=== PATIENT | female | born 1945 | race Caucasian/White ===

== ENCOUNTER 2016-10-19 10:21 | Emergency (ER) | payer BC ==
[2016-10-19 11:04] VITALS: BP 106/67
[2016-10-19] MEDS ORDERED: predniSONE TAB* 20 MG PO ONE (12:15)
--- NOTE | 2016-10-19 12:24 | UC ---
Skin Complaint HPI - HPI Summary HPI Summary: 71 yo female with poison lora x 4 days progressively worsening - History of Current Complaint Chief Complaint: UCSkin Time Seen by Provider: 10/19/16 12:07 Stated Complaint: POISON LORA Hx Obtained From: Patient Onset/Duration: Gradual Onset, Lasting Days Timing: Constant Onset Severity: Mild Current Severity: Mild Pain Intensity: 0 Pain Scale Used: 0-10 Numeric Character: Pruritus, Redness, Painful Aggravating: Nothing Alleviating: Nothing Associated Signs & Symptoms: Positive: Negative, Rash - Allergy/Home Medications Allergies/Adverse Reactions: Allergies Allergy/AdvReac Type Severity Reaction Status Date / Time Niacin Allergy Agitation Verified 10/19/16 11:04 Home Medications: Home Medications Aspirin Low Dose CHEW TAB* [Aspirin Low Dose TAB*] 81 mg PO DAILY 10/19/16 [ History Confirmed 10/19/16] Levothyroxine TAB* [Synthroid TAB*] 150 mcg PO DAILY 10/19/16 [History Confirmed 10/19/16] Lisinopril TAB* [Prinivil TAB*] 5 mg PO DAILY 10/19/16 [History Confirmed ] Multiple Vitamins W/ Minerals [Ocuvite Eye Health Formul] 1 cap PO DAILY [History Confirmed 10/19/16] Pravastatin Sodium [Pravachol] 40 mg PO DAILY 10/19/16 [History Confirmed ] Review of Systems Constitutional: Negative Skin: Rash Eyes: Negative ENT: Negative Respiratory: Negative Cardiovascular: Negative Gastrointestinal: Negative Genitourinary: Negative Motor: Negative Neurovascular: Negative Musculoskeletal: Negative Neurological: Negative Psychological: Negative All Other Systems Reviewed And Are Negative: Yes PMH/Surg Hx/FS Hx/Imm Hx Previously Healthy: Yes - Surgical History Surgical History: Yes Surgery Procedure, Year, and Place: thyroid. left total knee - Family History Known Family History: Positive: Hypertension - Social History Alcohol Use: Occasionally Substance Use Type: None Smoking Status (MU): Never Smoked Tobacco Physical Exam Triage Information Reviewed: Yes Appearance: Well-Appearing, No Pain Distress, Well-Nourished Vital Signs: Initial Vital Signs Temp 98.5 F 10/19/16 11:02 Pulse 65 10/19/16 11:02 Resp 16 10/19/16 11:02 BP 106/67 10/19/16 11:02 Pulse Ox 99 10/19/16 11:02 Vital Signs Reviewed: Yes Eyes: Positive: Conjunctiva Clear ENT: Positive: Hearing grossly normal. Negative: Pharyngeal erythema, Nasal congestion, Nasal drainage, TMs normal, Trismus, Muffled/hoarse voice Neck: Positive: Supple, Nontender Respiratory: Positive: Lungs clear, Normal breath sounds, No respiratory distress Cardiovascular: Positive: RRR, No Murmur Musculoskeletal: Positive: ROM Intact, No Edema Neurological: Positive: Alert Skin Exam: Other - rash c/w contact derm on arms and legs Course/Dx - Diagnoses Provider Diagnoses: contact dermatitis Discharge - Discharge Plan Condition: Stable Disposition: HOME Prescriptions: Prednisone [Deltasone] 20 - 40 mg PO DAILY #15 tab Patient Education Materials: Poison Lora (ED) Additional Instructions: recheck for worsening symptoms see your MD if not better in 1-2 weeks
== END 2016-10-19 12:27 | disposition home or self-care (01) ==
LOC: UCCORT 10:21
DX: L25.5 Unspecified contact dermatitis due to plants, except food (principal); Z88.8 Allergy status to other drugs, medicaments and biological substances; E89.0 Postprocedural hypothyroidism; Z96.652 Presence of left artificial knee joint
CPT/HCPCS: 99202; G0463; J7512

== ENCOUNTER 2017-09-29 09:22 | Emergency (ER) | payer BC ==
[2017-09-29 09:37] VITALS: BP 101/52
--- NOTE | 2017-09-29 09:50 | UC ---
Skin Complaint HPI - HPI Summary HPI Summary: Skin rash for a few days. This is after mowing the lawn. She gets this every year. No fever or chills. Prednisone some times helps. - History of Current Complaint Chief Complaint: UCSkin Time Seen by Provider: 09/29/17 09:30 Stated Complaint: skin complaint Hx Obtained From: Patient Onset/Duration: Gradual Onset, Lasting Days Skin Exposure Onset/Duration: Days Ago Onset Severity: Moderate Current Severity: Moderate Pain Intensity: 0 Location: Diffuse - small patches diffusely., Generalized - Mainly on the arms but there is a patch ont he chest as well. Character: Swelling, Pruritus, Raised Aggravating Factor(s): Touch Alleviating Factor(s): Nothing Associated Signs & Symptoms: Positive: Rash. Negative: Nausea, Vomiting, Numbness, Pallor, Shivering, Fever, Chills, Cough, Tenderness - Allergy/Home Medications Allergies/Adverse Reactions: Allergies Allergy/AdvReac Type Severity Reaction Status Date / Time niacin AdvReac Anxiety Verified 09/29/17 09:37 Review of Systems Skin: Rash All Other Systems Reviewed And Are Negative: Yes PMH/Surg Hx/FS Hx/Imm Hx Previously Healthy: No - prior contact dermatitis. - Surgical History Surgical History: Yes Surgery Procedure, Year, and Place: Thyroidectomy, 1966. Left Knee Arthroscopy. Tonsillectomy - Family History Known Family History: Positive: Hypertension - Social History Alcohol Use: None Substance Use Type: None Smoking Status (MU): Never Smoked Tobacco Physical Exam Triage Information Reviewed: Yes Appearance: Well-Appearing, No Pain Distress, Well-Nourished Vital Signs: Initial Vital Signs Temp 99.0 F 09/29/17 09:31 Pulse 65 09/29/17 09:31 Resp 16 09/29/17 09:31 BP 101/52 09/29/17 09:31 Pulse Ox 99 09/29/17 09:31 Vital Signs Reviewed: Yes Eyes: Positive: Conjunctiva Clear ENT: Positive: Normal ENT inspection Neck: Positive: Supple, Nontender, No Lymphadenopathy. Negative: Nuchal Rigidity Respiratory: Negative: Respiratory distress Cardiovascular: Positive: Brisk Capillary Refill Abdomen Description: Negative: Distended Musculoskeletal: Positive: Strength Intact, ROM Intact, No Edema Neurological: Positive: Alert, Muscle Tone Normal. Negative: Fatigued Skin: Positive: rashes - small patches of rash mainly scatterred about the arms. There are small vesicles that are raised. Course/Dx - Diagnoses Provider Diagnoses: contact dermatitis. Discharge - Sign-Out/Discharge Documenting (check all that apply): Discharge/Admit/Transfer - Discharge Plan Condition: Good Disposition: HOME Prescriptions: Triamcinolone 0.5% OINT * 1 applic TOPICAL BID #1 tube Patient Education Materials: Poison Rika (ED), Cold Compress or Soak (ED) Referrals: Johny ZAFAR,Natali Shepard [Primary Care Provider] - - Billing Disposition and Condition Condition: GOOD Disposition: HOME
== END 2017-09-29 09:50 | disposition home or self-care (01) ==
LOC: UCCORT 09:22
DX: L25.9 Unspecified contact dermatitis, unspecified cause (principal); Z88.8 Allergy status to other drugs, medicaments and biological substances
CPT/HCPCS: 99212; G0463

== ENCOUNTER 2023-04-08 08:42 | Inpatient (IN) ==
[~2023-04-08 08:42] MED LIST: Buffered Lidocaine 1% SYRIN 1 ml INTRADERM ONE; Famotidine IV 10 MG/ML 2 ml VIAL (20 mg) IV ONE; Lactated Ringers 1000 ml BAG 1,000 ML IV SCH
[2023-04-08] MEDS ORDERED: Tranexamic Acid 1 GM/100ML BAG 2,000 MG/200 ML BAG IV ONE (09:14)
[2023-04-08] MEDS ORDERED: ceFAZolin 2 GM PREMIX 2 GM/50 ML BAG ONE (09:14)
[2023-04-08] MEDS ORDERED: Famotidine IV 10 MG/ML 2 ml VIAL (20 mg) ONE (09:14)
[2023-04-08 09:43] LABS: Rapid COVID-19 Molecular Undetected (Undetected)
[2023-04-08] MEDS ORDERED: Propofol 10 MG/ML 20 ML BTL ONE (10:17)
[2023-04-08] MEDS ORDERED: Ondansetron 4 mg VIAL 2 MG/ML 2 ml VIAL ONE (10:17)
[2023-04-08] MEDS ORDERED: Glycopyrrolate IV 0.2 MG/ML 1 ML VIAL ONE (10:17)
[2023-04-08] MEDS ORDERED: Dexamethasone IV 4 MG/ML VIAL 1 ml VIAL ONE (10:17)
[2023-04-08] MEDS ORDERED: fentaNYL 100 mcg/2 ml 50 MCG/ML VIAL ONE ×3 (10:17→14:36)
[2023-04-08] MEDS ORDERED: Rocuronium 50 mg VIAL 10 mg/ml 5 ml VIAL (50 mg) ONE (10:19)
[2023-04-08] MEDS ORDERED: ROPIVACAINE 5 MG/ML 30 ML BTL (0.5%) ONE (10:24)
[2023-04-08] MEDS ORDERED: Esmolol 10 MG/ML 10 ML (100 mg) IV ONE (11:11)
[2023-04-08] MEDS ORDERED: Ondansetron 4 mg VIAL 2 MG/ML 2 ml VIAL IV PRN ×2 (11:32→13:59)
[2023-04-08] MEDS ORDERED: Naloxone 0.4 mg VIAL 0.4 mg/ml 1 ml VIAL IV PRN (11:32)
[2023-04-08] MEDS ORDERED: HYDROmorphone 0.5 MG/0.5 ML SYRINGE ONE (11:39)
[2023-04-08] MEDS ORDERED: Labetalol IV 5 MG/ML 20 ml VIAL ONE (12:32)
[2023-04-08] MEDS ORDERED: Magnesium Hydroxide LIQ 30 ML UDC PO PRN (13:59)
[2023-04-08] MEDS ORDERED: Lactulose 30 ml UDC PO PRN (13:59)
[2023-04-08] MEDS ORDERED: Ondansetron ODT 4 mg TAB 4 MG TAB PO PRN (13:59)
[2023-04-08] MEDS ORDERED: Morphine 2 MG/ML SYRINGE IV PRN (13:59)
[2023-04-08] MEDS: fentaNYL 100 mcg/2 ml 50 MCG/ML VIAL IV PRN ×4 (14:39→15:15)
[2023-04-08] MEDS ORDERED: HYDROmorphone 1 MG/1 ML SYRINGE ONE (15:41)
[2023-04-08] MEDS: HYDROmorphone 1 MG/1 ML SYRINGE IV PRN ×3 (15:43→16:02)
[2023-04-08] MEDS: Lactated Ringers 1000 ml BAG 1,000 ML IV SCH (18:45)
[2023-04-08] MEDS: ceFAZolin 1 GM ADVAN 1 GM in NS 0.9% 50 ML 50 ML IVPB SCH (18:46)
[2023-04-08] MEDS: Magnesium Hydroxide LIQ 30 ML UDC PO SCH (21:04)
[2023-04-09] MEDS: ceFAZolin 1 GM ADVAN 1 GM in NS 0.9% 50 ML 50 ML IVPB SCH ×2 (03:42→10:30)
[2023-04-09] MEDS: Lactated Ringers 1000 ml BAG 1,000 ML IV SCH (05:21)
[2023-04-09] MEDS: Magnesium Hydroxide LIQ 30 ML UDC PO SCH (07:42)
[2023-04-09 07:50] LABS: Hematocrit 28.2 % (35-45); Hemoglobin 9.4 g/dL (11.5-14.3); Mean Platelet Volume 7.9 fL (7.5-11.2); Platelet Count 205 10^3/uL (150-450)
[2023-04-09 08:40] LABS: Creatinine, Serum 0.78 mg/dL (0.51-0.95); Potassium 4.4 mmol/L (3.5-5.0); eGFR CKD-EPI 77.2 (>60)
[2023-04-09 11:20] VITALS: BP 92/54
== END 2023-04-09 12:25 | disposition home or self-care (01) | DRG 470 ==
LOC: AA 08:42 → SSU 16:33
PROVIDERS: ADMIT Orthopaedic Surgery Adult Reconstructive Orthopaedic Surgery; ATTEND Orthopaedic Surgery Adult Reconstructive Orthopaedic Surgery